=== PATIENT | female | born 1985 | race African-American/Black ===

== ENCOUNTER 2016-07-09 12:43 | Emergency (ER) | payer MEDICAID ==
[2016-07-09 12:52] VITALS: BP 133/76
--- NOTE | 2016-07-09 13:44 | ER Document Report ---
ED Medical Screen (RME) - General Chief Complaint: Shoulder Pain Stated Complaint: SHOULDER PAIN Notes: Patient states she woke up yesterday morning with pain in her left shoulder. Pain has increasingly gotten worse, and states now she is unable to move her shoulder. Feels like something needs to pop. No known injury. 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 Denies chest pain or shortness of breath. No previous injury to shoulder. I have greeted and performed a rapid initial assessment of this patient. A comprehensive ED assessment and evaluation of the patient, analysis of test results and completion of the medical decision making process will be conducted by additional ED providers. - Related Data Allergies/Adverse Reactions: No Known Allergies Allergy (Verified 07/09/16 13:40) Past Medical History Endocrine Medical History: Denies: Hx Hypothyroidism Renal/ Medical History: Reports: Hx Ovarian Cysts Past Surgical History: Reports: Hx Cholecystectomy, Hx Gynecologic Surgery - isha OVARIAN CYST REMOVAL, Hx Tonsillectomy - Immunizations Hx Diphtheria, Pertussis, Tetanus Vaccination: Yes Physical Exam - Vital signs Vitals: Temp Pulse Resp BP Pulse Ox 97.9 F 88 16 133/76 H 99 07/09/16 12:51 07/09/16 12:51 07/09/16 12:51 07/09/16 12:51 07/09/16 12:51 - Extremities Notes: Left shoulder tender to palpation, more pain located around the joint. Decreased range of motion. Neurovascular and sensation intact. Course - Vital Signs Vital signs: Temp Pulse Resp BP Pulse Ox 97.9 F 88 16 133/76 H 99 07/09/16 12:51 07/09/16 12:51 07/09/16 12:51 07/09/16 12:51 07/09/16 12:51
--- NOTE | 2016-07-09 14:46 | ER Document Report ---
HPI - HPI Patient complains to provider of: left shoulder pain Onset: Yesterday Quality of pain: Achy, Throbbing Pain Level: 5 Context: She presents to emergency department with left shoulder pain that started yesterday. She reports she is taking approximately eases the pain but she still has some throbbing pain. She denies injury. Denies other symptoms such as fever vomiting diarrhea. 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 Denies: Hx Peritoneal Dialysis Past Surgical History: Reports: Hx Cholecystectomy, Hx Gynecologic Surgery - isha OVARIAN CYST REMOVAL, Hx Tonsillectomy - Immunizations Hx Diphtheria, Pertussis, Tetanus Vaccination: Yes Vertical Provider Document - CONSTITUTIONAL Agree With Documented VS: Yes Exam Limitations: No Limitations General Appearance: WD/WN, No Apparent Distress - INFECTION CONTROL TRAVEL OUTSIDE OF THE [place] IN LAST 30 DAYS: No - HEENT HEENT: Atraumatic, Normocephalic - NECK Neck: Normal Inspection, Supple. negative: Lymphadenopathy-Left, Lymphadenopathy-Right - RESPIRATORY Respiratory: Breath Sounds Normal, No Respiratory Distress O2 Sat by Pulse Oximetry: 99 - CARDIOVASCULAR Cardiovascular: Regular Rate - MUSCULOSKELETAL/EXTREMETIES Musculoskeletal/Extremeties: Tender - left shoulder ttp, no obvious deformity, no swelling/warmth, c/o pain when raising above her head, good radial pulse, brisk cap refill - NEURO Level of Consciousness: Awake, Alert, Appropriate Motor/Sensory: No Motor Deficit - DERM Integumentary: Warm, Dry Adult Front & Back Diagram: 1 - c/o pain Course - Vital Signs Vital signs: Temp Pulse Resp BP Pulse Ox 97.9 F 88 16 133/76 H 99 07/09/16 12:51 07/09/16 12:51 07/09/16 12:51 07/09/16 12:51 07/09/16 12:51 - Diagnostic Test Radiology reviewed: Image reviewed, Reports reviewed - IMPRESSION: NEGATIVE STUDY OF THE LEFT SHOULDER. NO EXPLANATION FOR PAIN Discharge - Discharge Clinical Impression: Elevated blood pressure reading Shoulder pain, acute Qualifiers: Laterality: left Qualified Code(s): M25.512 - Pain in left shoulder Condition: Stable Disposition: HOME, SELF-CARE Instructions: Use of Ttcn-Mcy-Aucozmp Ibuprofen ([facility]), Oral Narcotic Medication ([facility]), Ice Packs ([facility]) Additional Instructions: *You have been evaluated for shoulder pain *Rest/Ice packs *Follow up with orthopedics within one week-call for an appointment *Take medication as prescribed *Return to ED for worsening condition, changes, needs Monitor your blood pressure. Your blood pressure was elevated today. This may be because you were anxious, in pain or because you need medication. It is important to follow up with your primary care provider for full evaluation. Prescriptions: Oxycodone HCl/Acetaminophen [Percocet 5-325 mg Tablet] 1 tab PO ASDIR PRN #15 tablet PRN Reason: Forms: Elevated Blood Pressure, Return to Work Referrals: [facility] [Provider Group] - Follow up in 1 week
== END 2016-07-09 15:52 | disposition home or self-care (01) ==
LOC: ER 12:43
DX: M25.512 Pain in left shoulder (principal); R03.0 Elevated blood-pressure reading, without diagnosis of hypertension
CPT/HCPCS: 99283

== ENCOUNTER 2017-08-11 23:07 | Emergency (ER) | payer SELFPAY ==
[2017-08-11 23:27] VITALS: BP 125/74
[2017-08-12] MEDS ORDERED: ONDANSETRON 4 MG TAB.RAPDIS PO ONE (00:38)
[2017-08-12] MEDS ORDERED: LIDOCAINE 2% VISCOUS SOLN 20 ML UDCUP PO ONE (00:38)
[2017-08-12] MEDS ORDERED: METOCLOPRAMIDE HCL ORAL SOLN 10 MG/10 ML UDCUP PO ONE (00:38)
[2017-08-12] MEDS ORDERED: MAG HYDROX/AL HYDROX/SIMETH SUSP 30 ML UDCUP PO ONE (00:38)
--- NOTE | 2017-08-12 00:38 | ER Document Report ---
ED General - General Mode of Arrival: Ambulatory Information source: Patient TRAVEL OUTSIDE OF THE [place] IN LAST 30 DAYS: No <SANDRA VAN - Last Filed: 08/12/17 06:42> <ANNETTE WILKS - Last Filed: 08/12/17 06:43> - General Chief Complaint: Abdominal Pain Stated Complaint: ABDOMINAL PAIN Time Seen by Provider: 08/12/17 00:27 Notes: Patient is a 31-year-old female with a history of ovarian cysts, gall stones and a cholecystectomy (2006) presents to the emergency department complaining of abdominal pain with associated symptoms of nausea and vomiting onset today. Patient describes her pain as intermittent and exacerbated with food. Patient states that she made herself vomit today in attempt to alleviate her symptoms. Patient denies any fevers, diarrhea, history of ulcers, or any blood in stool or vomit. (SANDRA VAN) - Related Data Allergies/Adverse Reactions: No Known Allergies Allergy (Verified 07/09/16 13:40) Past Medical History - Social History Smoking Status: Never Smoker Cigarette use (# per day): No Chew tobacco use (# tins/day): No Smoking Education Provided: No Frequency of alcohol use: None Drug Abuse: None Family History: CAD, DM, Hypertension Endocrine Medical History: Denies: Hx Hypothyroidism Renal/ Medical History: Reports: Hx Ovarian Cysts. Denies: Hx Peritoneal Dialysis Past Surgical History: Reports: Hx Cholecystectomy, Hx Gynecologic Surgery - isha OVARIAN CYST REMOVAL, Hx Tonsillectomy - Immunizations Hx Diphtheria, Pertussis, Tetanus Vaccination: Yes <SANDRA VAN - Last Filed: 08/12/17 06:42> Physical Exam <SANDRA VAN - Last Filed: 08/12/17 06:42> <ANNETTE WILKS - Last Filed: 08/12/17 06:43> - Vital signs Vitals: Temp Pulse Resp BP Pulse Ox 97.9 F 77 18 125/74 100 08/11/17 23:26 08/11/17 23:26 08/11/17 23:26 08/11/17 23:26 08/11/17 23:26 - Notes Notes: GENERAL: Alert, interacts well. No acute distress. HEAD: Normocephalic, atraumatic. EYES: Pupils equal, round, and reactive to light. Extraocular movements intact. ENT: Oral mucosa moist, tongue midline. NECK: Full range of motion. Supple. Trachea midline. LUNGS: Clear to auscultation bilaterally, no wheezes, rales, or rhonchi. No respiratory distress. HEART: Regular rate and rhythm. No murmurs, gallops, or rubs. ABDOMEN: Soft, mild epigastric tenderness to palpation. Non-distended. Bowel sounds present in all 4 quadrants. EXTREMITIES: Moves all 4 extremities spontaneously. No edema, radial and dorsalis pedis pulses 2/4 bilaterally. No cyanosis. NEUROLOGICAL: Alert and oriented x3. Normal speech. PSYCH: Normal affect, normal mood. SKIN: Warm, dry, normal turgor. No rashes or lesions noted. (SANDRA VAN) Course - Laboratory Result Diagrams: 08/12/17 00:32 08/12/17 00:32 <SANDRA VAN - Last Filed: 08/12/17 06:42> - Laboratory Result Diagrams: 08/12/17 00:32 08/12/17 00:32 <ANNETTE WILKS - Last Filed: 08/12/17 06:43> - Re-evaluation Re-evalutation: 08/12/17 03:37 CBC shows slight leukocytosis 10.7, she is anemic with hemoglobin 9.4, patient will follow up for this as an outpatient, chemistries unremarkable, lipase normal, hCG negative, urinalysis unremarkable. Patient states that she is feeling significantly better after the Zofran and the GI cocktail. States that she would like to go home. Pain is not completely resolved but is significantly improved. Patient is encouraged to use Zantac, given Zofran dispense pack. Asked to return should her pain worsen or she develop fevers. ( ANNETTE WILKS) - Vital Signs Vital signs: Temp Pulse Resp BP Pulse Ox 97.9 F 77 18 125/74 100 08/11/17 23:26 08/11/17 23:26 08/11/17 23:26 08/11/17 23:26 08/11/17 23:26 - Laboratory Laboratory results interpreted by me: 08/12/17 00:32 WBC 10.7 H Hgb 9.4 L Hct 30.8 L MCV 67 L MCH 20.6 L MCHC 30.6 L RDW 19.3 H Discharge <SANDRA VAN - Last Filed: 08/12/17 06:42> <ANNETTE WILKS - Last Filed: 08/12/17 06:43> - Discharge Clinical Impression: Epigastric abdominal pain Condition: Stable Disposition: HOME, SELF-CARE Additional Instructions: I suspect her pain is coming from gastritis. This is an irritation of the lining of the stomach from too much acid. I have prescribed you Zantac 150 mg 1 pill twice a day to decrease the acid in your stomach. This will fix the problem. While you are taking that you should also take Carafate, Carafate is a coating agent that will protect her stomach and help to decrease her pain while the Zantac is working and allows a chance to heal. Carafate must be taken at least an hour after your other medications or ulcer. The other medications from working. I have also prescribed you Zofran to help with your nausea. Should you develop uncontrollable vomiting, blood in your vomiting, fevers, uncontrollable pain or any new or concerning symptoms please return to the emergency department. Prescriptions: Ondansetron [Zofran Odt 4 mg Tablet] 4 mg PO Q4HP PRN #30 tab.rapdis PRN Reason: Ranitidine HCl [Zantac 150 mg Tablet] 150 mg PO BID #30 tablet Sucralfate [Carafate 1 gm Tablet] 1 gm PO ACHS #30 tablet Referrals: NARINDER BOYCE, [facility] [Primary Care Provider] - Follow up in 3-5 days Scribe Attestation: 08/12/17 06:42 I personally performed the services described in the documentation, reviewed and edited the documentation which was dictated to the scribe in my presence, and it accurately records my words and actions. (ANNETTE WILKS) Scribe Documentation - Scribe Written by Balbir:: Balbir Reed, 08/12/2017 01:03 acting as scribe for :: Sera <SANDRA VAN - Last Filed: 08/12/17 06:42>
[2017-08-12 00:42] LABS: ABSOLUTE EOSINOPHILS # (AUTO) 0.1 10^3/uL (0.0-0.6); ABSOLUTE LYMPHOCYTES (AUTO) 2.7 10^3/uL (0.5-4.7); ABSOLUTE MONOCYTES (AUTO) 0.6 10^3/uL (0.1-1.4); ABSOLUTE NEUT (AUTO) 7.2 10^3/uL (1.7-8.2); BASOPHILS % (AUTO) 0.5 % (0-2); EOSINOPHILS % (AUTO) 1.2 % (0-6); HEMATOCRIT 30.8 % (36.0-47.0); HEMOGLOBIN 9.4 g/dL (12.0-15.5); LYMPHOCYTES % (AUTO) 25.3 % (13-45); MEAN CORPUSCULAR HEMOGLOBIN 20.6 pg (27.0-33.4); MEAN CORPUSCULAR HGB CONC 30.6 g/dL (32.0-36.0); MEAN CORPUSCULAR VOLUME 67 fl (80-97); MONOCYTES % (AUTO) 5.3 % (3-13); PLATELET COUNT 332 10^3/uL (150-450); RED BLOOD COUNT 4.57 10^6/uL (3.72-5.28); RED CELL DISTRIBUTION WIDTH 19.3 % (11.5-14.0); SEGMENTED NEUTROPHILS % (AUTO) 67.7 % (42-78); TOTAL CELLS COUNTED % (AUTO) 100 %; WHITE BLOOD COUNT 10.7 10^3/uL (4.0-10.5)
[2017-08-12 01:08] LABS: ALANINE AMINOTRANSFERASE 21 U/L (9-52); ALBUMIN 4.1 g/dL (3.5-5.0); ALKALINE PHOSPHATASE 97 U/L (38-126); ANION GAP 12 (5-19); ASPARTATE AMINO TRANSFERASE 16 U/L (14-36); BILIRUBIN,DIRECT 0.2 mg/dL (0.0-0.4); BILIRUBIN,TOTAL 0.2 mg/dL (0.2-1.3); BLOOD UREA NITROGEN 14 mg/dL (7-20); CALCIUM 9.4 mg/dL (8.4-10.2); CARBON DIOXIDE 27 mmol/L (22-30); CHLORIDE 105 mmol/L (98-107); GLUCOSE 87 mg/dL (75-110); POTASSIUM 3.9 mmol/L (3.6-5.0); SODIUM 143.9 mmol/L (137-145); TOTAL PROTEIN 7.8 g/dL (6.3-8.2)
[2017-08-12 01:38] LABS: APPEARANCE,URINE CLEAR; BILIRUBIN,URINE NEGATIVE (NEGATIVE); COLOR,URINE YELLOW; GLUCOSE, URINE NEGATIVE (NEGATIVE); KETONES,URINE NEGATIVE (NEGATIVE); LEUKOCYTE ESTERASE,URINE NEGATIVE (NEGATIVE); NITRITE,URINE NEGATIVE (NEGATIVE); PROTEIN,URINE NEGATIVE (NEGATIVE); URINE SPECIFIC GRAVITY 1.024; UROBILINOGEN,URINE NEGATIVE mg/dL (<2.0)
[2017-08-12] MEDS ORDERED: ONDANSETRON ODT 4 MG TAB (6 TAB/ER DISP) PO PRN (03:36)
== END 2017-08-12 04:38 | disposition home or self-care (01) ==
LOC: ER 23:07
DX: R10.13 Epigastric pain (principal); R11.2 Nausea with vomiting, unspecified; Z90.49 Acquired absence of other specified parts of digestive tract; D72.829 Elevated white blood cell count, unspecified; D64.9 Anemia, unspecified
CPT/HCPCS: 99284; 36415; 83690; 84703; 85025; 80053; 81001; S0119; J3490

== ENCOUNTER 2019-05-18 15:02 | Emergency (ER) | payer MEDICAID ==
--- NOTE | 2019-05-18 15:34 | ER Document Report ---
ED Medical Screen (RME) - General Chief Complaint: General Weakness Stated Complaint: PAIN ALL OVER Time Seen by Provider: 05/18/19 15:29 Primary Care Provider: NARINDER BOYCE NP [Primary Care Provider] - Follow up as needed Mode of Arrival: Ambulatory Information source: Patient Notes: 33-year-old female presents today with complaints of headache body aches and having her second menstrual period this month. Gives history of ovarian cyst. She reports she is taking ibuprofen without relief of symptoms. Denies fever vomiting diarrhea. Denies pain with void. I have greeted and performed a rapid initial assessment of this patient. A comprehensive ED assessment and evaluation of the patient, analysis of test results and completion of the medical decision making process will be conducted by additional ED providers. TRAVEL OUTSIDE OF THE [place] IN LAST 30 DAYS: No - Related Data Allergies/Adverse Reactions: No Known Allergies Allergy (Verified 05/18/19 15:26) Past Medical History Endocrine Medical History: Denies: Hx Hypothyroidism Renal/ Medical History: Reports: Hx Ovarian Cysts. Denies: Hx Peritoneal Dialysis Past Surgical History: Reports: Hx Cholecystectomy, Hx Gynecologic Surgery - isha OVARIAN CYST REMOVAL, Hx Tonsillectomy - Immunizations Hx Diphtheria, Pertussis, Tetanus Vaccination: Yes Physical Exam - Vital signs Vitals: Temp Pulse Resp BP Pulse Ox 98.1 F 82 18 148/73 H 99 05/18/19 15:04 05/18/19 15:04 05/18/19 15:04 05/18/19 15:04 05/18/19 15:04 Course - Vital Signs Vital signs: Temp Pulse Resp BP Pulse Ox 98.1 F 82 18 148/73 H 99 05/18/19 15:04 05/18/19 15:04 05/18/19 15:04 05/18/19 15:04 05/18/19 15:04 Doctor's Discharge - Discharge Referrals: NARINDER BOYCE NP [Primary Care Provider] - Follow up as needed
[2019-05-18 16:10] LABS: APPEARANCE,URINE CLEAR; BILIRUBIN,URINE NEGATIVE (NEGATIVE); COLOR,URINE YELLOW; GLUCOSE, URINE NEGATIVE (NEGATIVE); KETONES,URINE NEGATIVE (NEGATIVE); LEUKOCYTE ESTERASE,URINE NEGATIVE (NEGATIVE); NITRITE,URINE NEGATIVE (NEGATIVE); PROTEIN,URINE NEGATIVE (NEGATIVE); URINE SPECIFIC GRAVITY 1.011; UROBILINOGEN,URINE NEGATIVE mg/dL (<2.0)
[2019-05-18 16:28] LABS: A TYPE INFLUENZA AG NEGATIVE (NEGATIVE); B INFLUENZA AG NEGATIVE (NEGATIVE)
[2019-05-18 16:31] LABS: ALBUMIN 4.2 g/dL (3.5-5.0); ALKALINE PHOSPHATASE 109 U/L (38-126); ANION GAP 9 (5-19); ASPARTATE AMINO TRANSFERASE 18 U/L (14-36); BILIRUBIN,DIRECT 0.2 mg/dL (0.0-0.4); BILIRUBIN,TOTAL 0.3 mg/dL (0.2-1.3); BLOOD UREA NITROGEN 6 mg/dL (7-20); CARBON DIOXIDE 26 mmol/L (22-30); CHLORIDE 104 mmol/L (98-107); GLUCOSE 89 mg/dL (75-110); TOTAL PROTEIN 8.2 g/dL (6.3-8.2)
--- NOTE | 2019-05-18 16:46 | RADIOLOGY REPORT (SQ) ---
EXAM DESCRIPTION: U/S NON OB PEL TV W/DOPPLER COMPLETED DATE/TIME: 05/18/2019 4:30 pm REASON FOR STUDY: vag bleed, hx ovarian cyst COMPARISON: None. TECHNIQUE: Dynamic and static grayscale images acquired of the pelvis via transvaginal approach and recorded on PACS. Additional selected color Doppler and spectral images recorded. LIMITATIONS: None. FINDINGS: UTERUS: The uterus measures 10.4 x 4.8 x 6.9 cm. The myometrium is homogeneous. ENDOMETRIAL STRIPE: The endometrium measures 14 mm in thickness. CERVIX: The cervix measures 3.4 cm in length. There is a nabothian cyst. RIGHT OVARY AND DOPPLER: Unable to visualize the right ovary. There is no adnexal mass. LEFT OVARY AND DOPPLER: The left ovary measures 2.4 x 2.8 x 2 cm and on Doppler there is intact arter ial inflow and venous outflow within the ovarian stroma. There is a hypoechoic cystic structure with in the right ovary that measures 1.7 x 1.4 x 1.1 cm. FREE FLUID: None. OTHER: No other finding. IMPRESSION: 1. Normal endometrial thickness. 2. Nonvisualization of the right ovary. There is no adnexal mass. 3. 1.7 x 1.4 x 1.1 cm left ovarian cyst or follicle. There is no evidence of ovarian torsion. TECHNICAL DOCUMENTATION: JOB ID: [id number] [employer]- All Rights Reserved Rev-09/16 Reading location - IP/workstation name: [email or web address]
[2019-05-18 17:36] LABS: ABSOLUTE MONOCYTES (AUTO) 0.5 10^3/uL (0.1-1.4); BASOPHILS % (AUTO) 0.5 % (0-2); EOSINOPHILS % (AUTO) 0.7 % (0-6); HEMATOCRIT 28.7 % (36.0-47.0); HEMOGLOBIN 8.8 g/dL (12.0-15.5); LYMPHOCYTES % (AUTO) 22.1 % (13-45); MEAN CORPUSCULAR HEMOGLOBIN 20.1 pg (27.0-33.4); MEAN CORPUSCULAR HGB CONC 30.5 g/dL (32.0-36.0); MEAN CORPUSCULAR VOLUME 66 fl (80-97); MONOCYTES % (AUTO) 11.1 % (3-13); PLATELET COUNT 269 10^3/uL (150-450); RED BLOOD COUNT 4.36 10^6/uL (3.72-5.28); RED CELL DISTRIBUTION WIDTH 19.6 % (11.5-14.0); SEGMENTED NEUTROPHILS % (AUTO) 65.6 % (42-78); TOTAL CELLS COUNTED % (AUTO) 100 %; WHITE BLOOD COUNT 4.5 10^3/uL (4.0-10.5)
--- NOTE | 2019-05-18 17:59 | ER Document Report ---
HPI - HPI Time Seen by Provider: 05/18/19 15:29 Pain Level: 5 Notes: 33-year-old female presents today with complaints of headache, body aches and having her second menstrual period this month. Reports fatigue and hx of heavy periods since her teens. Gives history of ovarian cyst. She reports she is taking ibuprofen without relief of symptoms. Denies fever vomiting diarrhea or dysuria. - REPRODUCTIVE Reproductive: DENIES: : Past Medical History - General Information source: Patient - Social History Smoking Status: Never Smoker Family History: CAD, DM, Hypertension Patient has suicidal ideation: No Patient has homicidal ideation: No Endocrine Medical History: Denies: Hx Hypothyroidism Renal/ Medical History: Reports: Hx Ovarian Cysts. Denies: Hx Peritoneal Dialysis Past Surgical History: Reports: Hx Cholecystectomy, Hx Gynecologic Surgery - isha OVARIAN CYST REMOVAL, Hx Tonsillectomy - Immunizations Hx Diphtheria, Pertussis, Tetanus Vaccination: Yes Vertical Provider Document - CONSTITUTIONAL Notes: PHYSICAL EXAMINATION: GENERAL: Well-appearing, well-nourished and in no acute distress. HEAD: Atraumatic, normocephalic. EYES: Pupils equal round and reactive to light, extraocular movements intact, conjunctiva are normal. ENT: Nares patent, oropharynx clear without exudates. Moist mucous membranes. NECK: Normal range of motion, supple without lymphadenopathy LUNGS: Breath sounds clear to auscultation bilaterally and equal. No wheezes rales or rhonchi. HEART: Regular rate and rhythm without murmurs ABDOMEN: Soft, nontender, nondistended abdomen. No guarding, no rebound. No masses appreciated. Female : deferred Musculoskeletal: Normal range of motion, no pitting or edema. No cyanosis. NEUROLOGICAL: Cranial nerves grossly intact. Normal speech, normal gait. Normal sensory, motor exams PSYCH: Normal mood, normal affect. SKIN: Warm, Dry, normal turgor, no rashes or lesions noted. - INFECTION CONTROL TRAVEL OUTSIDE OF THE [place] IN LAST 30 DAYS: No Course - Re-evaluation Re-evalutation: Patient appears well, nontoxic, her hemoglobin is 8.8. Her vital signs are within normal limits. Her abdomen is soft, nontender. Will start patient on ferrous sulfate daily. She will follow-up with [facility] or the health department. - Vital Signs Vital signs: Temp Pulse Resp BP Pulse Ox 98.1 F 82 18 148/73 H 99 01/17/20 15:04 05/18/19 15:04 05/18/19 15:04 05/18/19 15:04 05/18/19 15:04 - Laboratory Result Diagrams: 05/18/19 17:22 05/18/19 15:50 Laboratory results interpreted by me: 05/18/19 05/18/19 05/18/19 15:35 15:50 17:22 Hgb 8.8 L Hct 28.7 L MCV 66 L MCH 20.1 L MCHC 30.5 L RDW 19.6 H BUN 6 L Urine Blood MODERATE H Discharge - Discharge Clinical Impression: Vaginal bleeding Fatigue Qualifiers: Fatigue type: unspecified Qualified Code(s): R53.83 - Other fatigue Condition: Stable Disposition: HOME, SELF-CARE Additional Instructions: You were seen today for dysfunctional uterine bleeding. This is when you have vaginal bleeding and abdominal cramping off of your normal menstrual cycle. F ollow-up with the health department, call them Tuesday to schedule an appointment. Take the medications I have prescribed and is directed. Return immediately if you worsening pain, you began bleeding through more than 2 pads per hour for more than 3 hours, you pass out, have persistent vomiting, develop a fever greater than 100.4F, or any other symptoms that are concerning to you. Prescriptions: Ferrous Sulfate [Iron] 325 mg PO DAILY #30 tablet Ibuprofen [Motrin 800 mg Tablet] 800 mg PO Q8H PRN #40 tab PRN Reason: Forms: Return to Work Referrals: NARINDER BOYCE NP [Primary Care Provider] - Follow up as needed
[2019-05-18 18:12] VITALS: BP 142/81
== END 2019-05-18 18:08 | disposition home or self-care (01) ==
LOC: ER 15:02
DX: N93.9 Abnormal uterine and vaginal bleeding, unspecified (principal); R53.83 Other fatigue; R51 Headache; M79.10 Myalgia, unspecified site
CPT/HCPCS: 36415; 76830; 80053; 81001; 81025; 85025; 87804; 93976; 99284